=== PATIENT | male | born 1960 | race Two or more races ===

== ENCOUNTER 2020-01-02 07:17 | Inpatient (IN) | payer OTHER ==
[~2020-01-02] VITALS: Ht 172.7 cm; Wt 114.4 kg
[~2020-01-02 07:17] MED LIST: AML5T PO; ASPI81CH43 PO; ATOR1TAB PO; FENO145T27 PO; GLIM4TAB42 PO; HCTZ25T PO; HYDR-4798 PO; ICOS1CAP PO; INSU70IN3 SC; LANS15TA6 PO; LISI40TA11 PO; METF-929 PO; METO25TA93 PO; MONT10TA23 PO; TIZA4TAB9 PO
[2020-01-02] MEDS ORDERED: LIDOCAINE 2%HCL (LOCAL ANESTH.) INJ 20ML MDV ONE (08:40)
[2020-01-02] MEDS ORDERED: fentaNYL CITRATE 100 MCG/2 ML VL ONE (09:42)
[2020-01-02] MEDS ORDERED: ANGIOMAX 250 MG VIAL IV ONE (09:42)
[2020-01-02] MEDS ORDERED: MIDAZOLAM HCL 1MG/1ML-2 ML VIAL ONE (09:42)
[2020-01-02] MEDS ORDERED: VERAPAMIL 2.5MG/ML INJ 2ML VIAL IV ONE (09:42)
[2020-01-02] MEDS ORDERED: SODIUM CHL 0.9% 50 ML ONE (09:43)
[2020-01-02] MEDS ORDERED: HEPARIN SODIUM (PORCINE) 5000 UNITS/ML 1ML VIAL ONE ×2 (10:10→10:38)
[2020-01-02] MEDS ORDERED: ASPirin 325 MG TAB ONE (10:28)
[2020-01-02] MEDS ORDERED: TICAGRELOR 90 MG TAB ONE (10:28)
[2020-01-02] MEDS ORDERED: HYDROcodone-ACET 10/325MG TAB PO PRN (11:30)
[2020-01-02] MEDS ORDERED: ONDANSETRON HCL 4 MG/2 ML VIAL IV PRN (11:30)
[2020-01-02] MEDS ORDERED: ACETAMINOPHEN 500 MG TAB PO PRN (11:30)
[2020-01-02] MEDS ORDERED: MORPHINE SULF INJ 2 MG/ML SYRINGE 1ML IV PRN (11:30)
[2020-01-02] MEDS ORDERED: NITROGLYCERIN 0.4 MG SL TAB SL PRN (11:30)
[2020-01-02] MEDS ORDERED: DEXTROSE (50%) 50ML SYRG IV PRN (11:45)
[2020-01-02] MEDS ORDERED: HCTZ 25 MG TAB PO ONE (12:00)
[2020-01-02] MEDS ORDERED: ASPirin 81 mg TAB PO ONE (12:00)
[2020-01-02] MEDS ORDERED: LISINOPRIL 20 MG TAB PO ONE (12:00)
[2020-01-02] MEDS ORDERED: amLODIPine BESYLATE 5 MG TAB PO ONE (12:00)
[2020-01-02] MEDS ORDERED: GLIMEPIRIDE 2 MG TAB PO ONE (12:00)
[2020-01-02] MEDS ORDERED: MONTELUKAST SODIUM 10 MG TAB PO ONE (12:00)
[2020-01-02] MEDS ORDERED: METOPROLOL TARTRATE 25 MG TAB PO ONE (12:00)
[2020-01-02 16:55] VITALS: BP 155/69
[2020-01-02] MEDS: ACCU-CHEK COMFORT CURVE STRIP VI SCH ×2 (17:22→22:46)
[2020-01-02] MEDS: InsuLIN REG 1unit/0.01ml Soln (100units/ml) SC SCH (17:23)
[2020-01-02] MEDS ORDERED: ATORVASTATIN 20 MG TAB PO SCH (18:00)
[2020-01-02 22:00] VITALS: BP 137/74
[2020-01-02] MEDS ORDERED: InsuLIN REG 1unit/0.01ml Soln (100units/ml) SC SCH (22:00)
[2020-01-02] MEDS ORDERED: INSULIN 70/30 1unit/0.01ml Susp (100units/ml) SC SCH (22:00)
[2020-01-02] MEDS ORDERED: TICAGRELOR 90 MG TAB PO SCH (22:00)
[2020-01-03 01:45] VITALS: BP 137/74
[2020-01-03 05:00] VITALS: BP 123/72
[2020-01-03] MEDS: ACCU-CHEK COMFORT CURVE STRIP VI SCH (06:40)
[2020-01-03] MEDS: InsuLIN REG 1unit/0.01ml Soln (100units/ml) SC SCH (06:41)
[2020-01-03 08:09] VITALS: BP 123/72
[2020-01-03 09:00] VITALS: BP 147/74
[2020-01-03] MEDS ORDERED: TRICOR PO SCH (10:00)
[2020-01-03] MEDS ORDERED: GLIMEPIRIDE 2 MG TAB PO SCH (10:00)
[2020-01-03] MEDS ORDERED: PREVACID PO SCH (10:00)
[2020-01-03] MEDS ORDERED: amLODIPine BESYLATE 5 MG TAB PO SCH (10:00)
[2020-01-03] MEDS ORDERED: LISINOPRIL 20 MG TAB PO SCH (10:00)
[2020-01-03] MEDS ORDERED: HCTZ 25 MG TAB PO SCH (10:00)
[2020-01-03] MEDS ORDERED: METOPROLOL TARTRATE 25 MG TAB PO SCH (10:00)
[2020-01-03] MEDS ORDERED: MONTELUKAST SODIUM 10 MG TAB PO SCH (10:00)
[2020-01-03] MEDS ORDERED: ASPirin 81 mg TAB PO SCH (10:00)
== END 2020-01-03 09:27 | disposition home or self-care (01) | DRG 247 ==
LOC: CATH 07:17 → TELE-CENTR 07:18
PROVIDERS: ADMIT Internal Medicine Cardiovascular Disease; ATTEND Internal Medicine Cardiovascular Disease
PROC: 027135Z Dilation of Coronary Artery, Two Arteries with Two Drug-eluting Intraluminal Devices, Percutaneous Approach (ICD-10-PCS; principal; 2020-01-02)
PROC: 4A023N7 Measurement of Cardiac Sampling and Pressure, Left Heart, Percutaneous Approach (ICD-10-PCS; 2020-01-02)
PROC: B211YZZ Fluoroscopy of Multiple Coronary Arteries using Other Contrast (ICD-10-PCS; 2020-01-02)
PROC: B215YZZ Fluoroscopy of Left Heart using Other Contrast (ICD-10-PCS; 2020-01-02)
PROC: 5A09357 Assistance with Respiratory Ventilation, Less than 24 Consecutive Hours, Continuous Positive Airway Pressure (ICD-10-PCS; 2020-01-02)
DX: I25.10 Atherosclerotic heart disease of native coronary artery without angina pectoris (principal); E11.9 Type 2 diabetes mellitus without complications; E66.9 Obesity, unspecified; E78.5 Hyperlipidemia, unspecified; I10 Essential (primary) hypertension; J45.909 Unspecified asthma, uncomplicated; Z20.828 Contact with and (suspected) exposure to other viral communicable diseases
CPT/HCPCS: 82962; 92928; 92929; 93458; 94660; 99152; 99153; C1874; G0378; J1815; J2250